=== PATIENT | female | born 1970 | race Caucasian/White ===

== ENCOUNTER 2020-02-25 10:01 | Outpatient (CLI) | payer OTHER | END 2020-02-25 10:12 | disposition home or self-care (01) | LOC: TOM 10:01 | DX: N28.89 Other specified disorders of kidney and ureter (principal); N28.1 Cyst of kidney, acquired ==

== ENCOUNTER 2020-02-28 09:13 | Outpatient (CLI) | payer OTHER | END 2020-02-28 16:40 | disposition home or self-care (01) | LOC: SONOGRAMA 09:13 | DX: N28.1 Cyst of kidney, acquired (principal) ==